=== PATIENT | male | born 1945 | race African-American/Black ===

== ENCOUNTER 2017-02-26 08:10 | Emergency (ER) | payer MEDICARE ==
[2017-02-26 08:55] LABS: Mucus,Urine FEW /HPF
[2017-02-26 09:02] LABS: Basophils % (Auto) 0.3 % (0.0-1.8); Eosinophils % (Auto) 1.3 % (0.0-4.3); Hematocrit 45.4 % (35.5-45.6); Hemoglobin 15.1 gm/dl (11.8-15.2); Mean Corpuscular HGB Conc 33 % (32-34); Mean Corpuscular Hemoglobin 32 pg (28-32); Mean Corpuscular Volume 95 fl (84-94); Platelet Count 190 K/mm3 (140-440); Red Cell Distribution Width 14.2 % (13.2-15.2); White Blood Count 6.5 K/mm3 (4.5-11.0)
[2017-02-26 09:09] LABS: Anion Gap 19 mmol/L; BUN/Creatinine Ratio 21; Blood Urea Nitrogen 15 mg/dL (9-20); Calcium 8.7 mg/dL (8.4-10.2); Carbon Dioxide 25 mmol/L (22-30); Chloride 95.9 mmol/L (98-107); Glucose 102 mg/dL (75-100); Potassium 3.9 mmol/L (3.6-5.0); Sodium 136 mmol/L (137-145)
[2017-02-26 09:10] LABS: Bilirubin,Urine NEG (Negative); Blood,Urine NEG (Negative); Ketones,Urine NEG (Negative); Leukocyte Esterase,Urine NEG (Negative); Nitrite,Urine NEG (Negative); Protein,Urine <15 mg/dL mg/dL (Negative); Urobilinogen,Urine < 2.0 mg/dL (<2.0)
[2017-02-26] MEDS ORDERED: NACL 0.9% 500 ML 500 ML IV ONE (12:30)
[2017-02-26] MEDS ORDERED: LOMOTIL PO ONE (12:30)
[2017-02-26] MEDS ORDERED: NACL ONE (12:36)
--- NOTE | 2017-02-26 12:55 | Emergency Department Report ---
HPI - General Chief Complaint: Nausea/Vomiting/Diarrhea Time Seen by Provider: 02/26/17 12:17 - [facility] HPI: Room 23 The patient is 72-year-old male presenting with a chief complaint of diarrhea. Patient states she ate fried chicken yesterday at 16:00 and immediately after developed diarrhea. Family states patient exhibited diarrhea at least every 15 minutes. Patient never had abdominal pain or nausea/vomiting. Patient states his stomach felt "upset." Patient try Imodium and Pepto-Bismol over-the- counter but it did not help. A small child also ate the same chicken that the patient ate and developed nausea and vomiting afterwards. Patient denies fever but admits to feeling cold. Patient denies any recent antibiotics Location: The gastrointestinal system Duration: Began yesterday Quality: "Upset" Severity: Moderate Modifying factors: [see above] Context: [see above] Mode of transportation: [not driving] ED Past Medical Hx - Past Medical History Previous Medical History?: Yes Hx of Cancer: Yes (PROSTRATE) - Surgical History Past Surgical History?: No - Family History Family history: no significant - Social History Smoking Status: Never Smoker Substance Use Type: None - Medications Home Medications: Home Medications Medication Instructions Recorded Confirmed Last Taken Type Ciprofloxacin HCl [Ciprofloxacin 500 mg PO BID #14 tablet 02/26/17 Unknown Rx TAB] Diphenoxylate HCl/Atropine 2 each PO QID PRN #20 tablet 02/26/17 Unknown Rx [Lomotil 2.5-0.025 mg Tablet] metroNIDAZOLE [Flagyl] 500 mg PO Q8HR #21 tablet 02/26/17 Unknown Rx ED Review of Systems ROS: Stated complaint: DIARRHEA Other details as noted in HPI Constitutional: chills. denies: fever Gastrointestinal: diarrhea. denies: abdominal pain, nausea, vomiting Physical Exam - Physical Exam Vital Signs: Vital Signs 02/26/17 02/26/17 08:13 12:00 Temperature 98.3 F Pulse Rate 82 78 Respiratory 18 16 Rate Blood Pressure 142/91 Blood Pressure 176/99 [Left] O2 Sat by Pulse 95 99 Oximetry Physical Exam: GENERAL: The patient is well-developed well-nourished male lying on stretcher not appearing to be in acute distress. [] HEENT: Normocephalic. Atraumatic. Extraocular motions are intact. Patient has moist mucous membranes. NECK: Supple. Trachea midline CHEST/LUNGS: Clear to auscultation. There is no respiratory distress noted. HEART/CARDIOVASCULAR: Regular. There is no tachycardia. There is no gallop rub or murmur. ABDOMEN: Abdomen is soft, nontender. Patient has normal bowel sounds. There is no abdominal distention. SKIN: There is no rash. There is no edema. There is no diaphoresis. NEURO: The patient is awake, alert, and oriented. The patient is cooperative. The patient has normal speech MUSCULOSKELETAL: There is no evidence of acute injury. ED Course Vital Signs 02/26/17 02/26/17 08:13 12:00 Temperature 98.3 F Pulse Rate 82 78 Respiratory 18 16 Rate Blood Pressure 142/91 Blood Pressure 176/99 [Left] O2 Sat by Pulse 95 99 Oximetry ED Medical Decision Making - Lab Data Result diagrams: 02/26/17 08:31 02/26/17 08:31 Laboratory Tests 02/26/17 02/26/17 02/26/17 08:18 08:31 08:31 WBC 6.5 RBC 4.80 Hgb 15.1 Hct 45.4 MCV 95 H MCH 32 MCHC 33 RDW 14.2 Plt Count 190 Lymph % (Auto) 16.9 Irion % (Auto) 11.9 H Eos % (Auto) 1.3 Baso % (Auto) 0.3 Lymph # 1.1 L Irion # 0.8 Eos # 0.1 Baso # 0.0 Seg Neutrophils % 69.6 Seg Neutrophils # 4.5 Sodium 136 L Potassium 3.9 Chloride 95.9 L Carbon Dioxide 25 Anion Gap 19 BUN 15 Creatinine 0.7 L Estimated GFR > 60 BUN/Creatinine Ratio 21 Glucose 102 H Calcium 8.7 Urine Color Yellow Urine Turbidity Clear Urine pH 5.0 Ur Specific Galt 1.018 Urine Protein <15 mg/dl Urine Glucose (UA) Neg Urine Ketones Neg Urine Blood Neg Urine Nitrite Neg Ur Reducing Substances Not Reportable Urine Bilirubin Neg Urine Ictotest Not Reportable Urine Urobilinogen < 2.0 Ur Leukocyte Esterase Neg Urine WBC (Auto) 1.0 Urine RBC (Auto) 2.0 U Epithel Cells (Auto) < 1.0 Calcium Oxalate Crystal 2+ Urine Mucus Few - Radiology Data Radiology results: report reviewed (CT abdomen and pelvis), image reviewed (CT abdomen and pelvis) FINAL REPORT EXAM: CT ABDOMEN PELVIS W CON HISTORY: diarrhea, "upset stomach" TECHNIQUE: CT of the abdomen and pelvis with IV contrast. Coronal and sagittal reconstructed imaging provided. PRIORS: None currently available. FINDINGS: ABDOMEN: Mild cardiomegaly. No pericardial effusion. Subtle subcentimeter low-attenuation lesion in the hepatic dome on series 3:50 measures 4 mm and is unchanged compared the prior. Gallbladder, stomach, spleen, pancreas, and adrenals are unremarkable. Symmetrical cortical enhancement both kidneys identified. No hydronephrosis. No suspicious lesions. IVC is intact. [id number] aortic atherosclerotic disease. No aneurysm. No dissection. No periaortic retroperitoneal mass or adenopathy. Jszl-on-ycnsfimx solid stool is present throughout the colon. Diverticulosis noted. No air-fluid levels. No wall thickening or inflammatory changes. Terminal ilium is unremarkable. Appendix is normal. Small bowel loops are unremarkable. No obstructive pattern. No free air. No free fluid. PELVIS: Mild atherosclerotic disease in the iliacs and femoral arteries. Vessels are patent. Bladder is unremarkable. There is no pelvic mass or adenopathy. Fat containing right inguinal hernia. No strangulation. Left inguinal regions unremarkable. Bones: No suspicious osseous lesions on this limited examination of the skeleton. Metastatic disease better evaluated with bone scan. Degenerative changes are in the spine. IMPRESSION: Mild cardiomegaly. Nonspecific subcentimeter lesion in the right hepatic dome. Too small to accurately characterize. Otherwise, no acute bowel findings. Transcribed By: TYM Dictated By: MAGO LEON MD Electronically Authenticated By: MAGO LEON MD Signed Date/Time: 02/26/171111 DD/ 11 TD/TT: 02/26/17 111 - Differential Diagnosis salmonella, enteritis, gastroenteritis Critical care attestation.: If time is entered above; I have spent that time in minutes in the direct care of this critically ill patient, excluding procedure time. ED Disposition Clinical Impression: Enteritis, Diarrhea Disposition: - TO HOME OR SELFCARE Is pt being admited?: No Does the pt Need Aspirin: No Condition: Stable Instructions: Acute Diarrhea (ED) Additional Instructions: Return to the emergency department immediately should you develop worsening symptoms, fever, inability to tolerate food or liquid or any other concerns. Prescriptions: Ciprofloxacin HCl [Ciprofloxacin TAB] 500 mg PO BID #14 tablet Diphenoxylate HCl/Atropine [Lomotil 2.5-0.025 mg Tablet] 2 each PO QID PRN #20 tablet PRN Reason: Diarrhea metroNIDAZOLE [Flagyl] 500 mg PO Q8HR #21 tablet Referrals: PRIMARY CARE, [Primary Care Provider] - 3-5 Days NALDO CASSIDY MD [Staff Physician] - 3-5 Days (Dr. Cassidy is a fuel manager. Please follow-up with him for further evaluation) Time of Disposition: 15:36
[2017-02-26 15:00] VITALS: BP 148/93
--- NOTE | 2017-02-26 15:15 | Cat Scan Report ---
FINAL REPORT EXAM: CT ABDOMEN PELVIS W CON HISTORY: diarrhea, "upset stomach" TECHNIQUE: CT of the abdomen and pelvis with IV contrast. Coronal and sagittal reconstructed imaging provided. PRIORS: None currently available. FINDINGS: ABDOMEN: Mild cardiomegaly. No pericardial effusion. Subtle subcentimeter low-attenuation lesion in the hepatic dome on series 3:50 measures 4 mm and is unchanged compared the prior. Gallbladder, stomach, spleen, pancreas, and adrenals are unremarkable. Symmetrical cortical enhancement both kidneys identified. No hydronephrosis. No suspicious lesions. IVC is intact. Amgw-zl-levwsrom aortic atherosclerotic disease. No aneurysm. No dissection. No periaortic retroperitoneal mass or adenopathy. Dyxk-oz-vomadoas solid stool is present throughout the colon. Diverticulosis noted. No air-fluid levels. No wall thickening or inflammatory changes. Terminal ilium is unremarkable. Appendix is normal. Small bowel loops are unremarkable. No obstructive pattern. No free air. No free fluid. PELVIS: Mild atherosclerotic disease in the iliacs and femoral arteries. Vessels are patent. Bladder is unremarkable. There is no pelvic mass or adenopathy. Fat containing right inguinal hernia. No strangulation. Left inguinal regions unremarkable. Bones: No suspicious osseous lesions on this limited examination of the skeleton. Metastatic disease better evaluated with bone scan. Degenerative changes are in the spine. IMPRESSION: Mild cardiomegaly. Nonspecific subcentimeter lesion in the right hepatic dome. Too small to accurately characterize. Otherwise, no acute bowel findings.
== END 2017-02-26 15:53 | disposition home or self-care (01) ==
LOC: ED 08:10
DX: K52.9 Noninfective gastroenteritis and colitis, unspecified (principal)
CPT/HCPCS: 36415; 74177; 80048; 81001; 85025; 99284; J7040; Q9967